=== PATIENT | male | born 1965 | race Caucasian/White ===

== ENCOUNTER → 2020-04-06 13:56 | Outpatient (BNVA) | payer OTHER, SELFPAY | PROVIDERS: PCP Urology; Visit Provider Nurse Practitioner Family | DX: Z20.828 Contact with and (suspected) exposure to other viral communicable diseases (principal) | CPT/HCPCS: 87635 ==

== ENCOUNTER 2024-05-10 15:58 | Emergency (ER) | payer SELFPAY ==
[2024-05-10 16:02] VITALS: BP 185/94; PULSE 62; TEMP 36.8; O2SAT 98
--- NOTE | 2024-05-10 16:14 | CTR_ITS ---
PROCEDURE INFORMATION: Exam: CT Head Without Contrast Exam date and time: 05/10/2024 4:17 PM Age: 59 years old Clinical indication: Stroke-like symptoms; Bilateral lower extremity numbness/paresthesia; Additional info: Symptoms of acute stroke TECHNIQUE: Imaging protocol: Computed tomography of the head without contrast. Radiation optimization: All CT scans at this facility use at least one of these dose optimization techniques: automated exposure control; mA and/or kV adjustment per patient size (includes targeted exams where dose is matched to clinical indication); or iterative reconstruction. Other technique: STROKE PROTOCOL was implemented. COMPARISON: No relevant prior studies available. RADIATION DOSE METRICS: Total DLP (mGy-cm): 1068.18 FINDINGS: Brain: Normal. No hemorrhage. Unremarkable white matter. No mass effect. Cerebral ventricles: No ventriculomegaly. Paranasal sinuses: Visualized sinuses are unremarkable. No fluid levels. Mastoid air cells: Visualized mastoid air cells are well aerated. Bones: Unremarkable. No acute fracture. Soft tissues: Unremarkable. CT/CT head thrombolytic [id number] IMPRESSION: No acute intracranial abnormality. ASSESSMENT: ASPECTS ([place] Stroke Program Early CT Score) is 10.
--- NOTE | 2024-05-10 16:23 | CTR_ITS ---
PROCEDURE INFORMATION: Exam: CTA Head With Contrast, Arteriography Exam date and time: 05/10/2024 4:26 PM Age: 59 years old Clinical indication: Headache; Additional info: Stroke symptoms TECHNIQUE: Imaging protocol: Computed tomographic angiography of the head with contrast. Exam focused on the arteries. 3D rendering (Not supervised by radiologist): MIP and/or 3D reconstructed images were created by the technologist. Radiation optimization: All CT scans at this facility use at least one of these dose optimization techniques: automated exposure control; mA and/or kV adjustment per patient size (includes targeted exams where dose is matched to clinical indication); or iterative reconstruction. Contrast material: OMNIPAQUE 350; Contrast volume: 100 ml; Contrast route: INTRAVENOUS (IV); COMPARISON: CT head thrombolytic [id number] 05/10/2024 4:17 PM RADIATION DOSE METRICS: Total DLP (mGy-cm): 541.52 FINDINGS: ANTERIOR CIRCULATION: Right internal carotid artery: Intracranial segment is patent with no significant stenosis. No aneurysm. Right middle cerebral artery: No occlusion or significant stenosis. No aneurysm. Right anterior cerebral artery: No occlusion or significant stenosis. No aneurysm. Left internal carotid artery: Intracranial segment is patent with no significant stenosis. No aneurysm. Left middle cerebral artery: No occlusion or significant stenosis. No aneurysm. Left anterior cerebral artery: No occlusion or significant stenosis. No aneurysm. POSTERIOR CIRCULATION: Right vertebral artery: No occlusion or significant stenosis. No aneurysm. Left vertebral artery: No occlusion or significant stenosis. No aneurysm. Basilar artery: No occlusion or significant stenosis. No aneurysm. Right posterior cerebral artery: No occlusion or significant stenosis. No aneurysm. Left posterior cerebral artery: No occlusion or significant stenosis. No aneurysm. Brain: No definite mass, mass effect, or midline shift. Cerebral ventricles: No ventriculomegaly. Bones/joints: Unremarkable. No acute fracture. Soft tissues: Unremarkable. PROCEDURE INFORMATION: Exam: CTA Neck With Contrast Exam date and time: 05/10/2024 4:26 PM Age: 59 years old Clinical indication: Headache; Additional info: Stroke symptoms TECHNIQUE: Imaging protocol: Computed tomographic angiography of the neck with contrast. Exam focused on the cervical segments of the vasculature. 3D rendering (Not supervised by radiologist): MIP and/or 3D reconstructed images were created by the technologist. Radiation optimization: All CT scans at this facility use at least one of these dose optimization techniques: automated exposure control; mA and/or kV adjustment per patient size (includes targeted exams where dose is matched to clinical indication); or iterative reconstruction. Contrast material: OMNIPAQUE 350; Contrast volume: 100 ml; Contrast route: INTRAVENOUS (IV); COMPARISON: CT head thrombolytic [id number] 05/10/2024 4:17 PM RADIATION DOSE METRICS: Total DLP (mGy-cm): 541.52 FINDINGS: Right common carotid artery: No stenosis. No dissection or occlusion. Right internal carotid artery: No stenosis of the extracranial segment. No dissection or occlusion. Right external carotid artery: No occlusion or stenosis of the origin. Left common carotid artery: No stenosis. No dissection or occlusion. Left internal carotid artery: No stenosis of the extracranial segment. No dissection or occlusion. Left external carotid artery: No occlusion or stenosis of the origin. Right vertebral artery: No stenosis. No dissection or occlusion. Left vertebral artery: No stenosis. No dissection or occlusion. Soft tissues: Normal. No significant soft tissue swelling. Bones/joints: No acute fracture. CT/CT angio headneck* [id number] IMPRESSION: No large vessel stenosis or occlusion. IMPRESSION: No stenosis or occlusion. REFERENCES: NASCET CRITERIA. The degree of stenosis in the cervical segment of the internal carotid artery is based on NASCET criteria. Normal is no stenosis. Mild is less than 50% stenosis. Moderate is 50-69% stenosis. Severe is 70% to 99% stenosis. Total occlusion is no detectable patent lumen.
[2024-05-10] MEDS: iohexol 350 mg/mL 500 mL Btl (per mL) IV (16:34)
--- NOTE | 2024-05-10 16:34 | ECG_ITS ---
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 Measurements Intervals [place] Rate: 67 P: 0 OR: 0 QRS: 39 QRSD: 106 T: 60 QT: 379 QTc: 401 Interpretive Statements Normal sinus rhythm frequent supraventricular ectopicsth INCOMPLETE RIGHT BUNDLE BRANCH BLOCK [90+ ms QRS DURATION, TERMINAL R IN V1/V2, 40+ ms S IN I/aVL/V4/V5/V6] ABNORMAL RHYTHM ECG No previous ECG available for comparison Electronically Signed On 05-11-2024 17:19:04 HAND PLUG SHAPER by Apple Grey M.D. [email or web address]
--- NOTE | 2024-05-10 16:37 | ED_ITS ---
HPI - Headache 2 General: Chief Complaint: Headache Stated Complaint: stroke symptoms Time Seen by Provider: 05/10/24 16:14 Source: patient Mode of arrival: ambulatory Limitations: no limitations History of Present Illness: 59-year-old male who states he has been having some nausea vomiting headache he states started today around 9:00. States the headache is gradually worsens now an 8 out of 10. Denies any history of headaches he denies any slurred speech or weakness. Denies this being a thunderclap sudden headache. Associated symptoms: Deny chest pain, fever(s), nausea, rash or vomiting Related Data Home Medications ?Medication ?Instructions ?Recorded ?Confirmed No Known Home Medications 04/06/2011/17 Allergies Allergy/AdvReac Type Severity Reaction Status Date / Time Penicillins Allergy Severe swelling Verified 05/10/24 16:06 in airway Review of Systems 2 Const: Denies: fever(s), chills, body aches or change in appetite Eyes: Denies: blurry vision or eye discomfort ENMT: Denies: throat pain or dental pain Card: Denies: chest pain Resp: Denies: dyspnea GI: Denies: abdominal pain, nausea, vomiting or diarrhea Musc: Denies: neck pain or back pain Skin/Breast: Denies: rash Neuro: Reports: headache(s) Physical Exam 2 Const: COMMON NORMALS: no acute distress, patient oriented x3 and healthy appearing HENMT: COMMON NORMALS: normocephalic and atraumatic HEAD & SCALP: n ormocephalic and atraumatic Eye: COMMON NORMALS: Equal, round and reactive pupils present and EOMs intact bilaterally PUPIL: Yes Equal, round and reactive pupils present Neck/C-Spine: COMMON NORMALS: full ROM and supple Chest: COMMONS NORMALS: normal inspection of the chest and normal palpation of entire chest wall Resp: COMMON NORMALS: normal respiratory effort, No retractions, No use of accessory muscles and clear to auscultation bilaterally AUSCULTATION: clear to auscultation bilaterally Cardio: COMMON NORMALS: regular rate, regular rhythm and No murmurs present (Cardio) RATE: regular rate RHYTHM: regular rhythm GI: COMMON NORMALS: Normal to inspection, nondistended, normoactive bowel sounds present, Soft to palpation, non-tender and no masses PALPATION: Yes Soft to palpation Extremity: COMMON NORMALS: normal to inspection and full ROM Neuro: COMMON NORMALS: patient oriented x3, moves all extremities and no focal motor deficits Psych: COMMON NORMALS: mental status grossly normal, Normal thought process present and cooperative THOUGHT PROCESS: Normal thought process present Skin: COMMON NORMALS: no rashes or lesions noted and no wounds GENERAL SKIN EXAM: no rashes or lesions noted Course 2 Vital Signs: Vital signs: Vital Signs Temperature 98.2 F 05/10/24 16:02 Pulse Rate 62 05/10/24 16:02 Blood Pressure 185/94 05/10/24 16:02 Pulse Oximetry 98 05/10/24 16:02 Oxygen Delivery Me thod Room Air 05/10/24 16:02 MDM - Headache Medical Decision Making Patient presents with a headache likely migraine headache his headache here is since resolved. Head CT blood works normal patient stable for discharge follow- up PCP return if worsening. Patient had no signs of hemorrhage or stroke Medical Records I reviewed the patient's medical records. Lab Data I reviewed the patient's lab results. 05/10/24 16:29 05/10/24 16:[address] 05/10/24 16:14 IMPRESSION: No acute intracranial abnormality. ASSESSMENT: ASPECTS ([place] Stroke Program Early CT Score) is 10. 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 Head/Neck CTA 05/10/24 16:23 IMPRESSION: No large vessel stenosis or occlusion. IMPRESSION: No stenosis or occlusion. REFERENCES: NASCET CRITERIA. The degree of stenosis in the cervical segment of the internal carotid artery is based on NASCET criteria. Normal is no stenosis. Mild is less than 50% stenosis. Moderate is 50-69% stenosis. Severe is 70% to 99% stenosis. Total occlusion is no detectable patent lumen. Laboratory Results WBC 10.07 10^3/uL (3.29-11.43) 05/10/24 16:29 RBC 4.70 10^6/uL (3.85-5.65) 05/10/24 16: Hgb 14.60 g/dL (11.27-16.99) 05/10/24 16: Hct 43.4 % (37-53) 05/10/24 16: MCV 92.3 fl (82-101) 05/10/24 16: MCH 31.1 pg (27-33) 05/10/24 16: MCHC 33.6 g/dL (30-55) 05/10/24 16: RDW 12.6 % (12.1-15.1) 05/10/24: Plt Count 264 10^3/cmm (157-399) 05/10/24 16: MPV 10.4 fL (7.4-10.4) 05/10/24 16: Neut % (Auto) 58.0 % 05/10/24 16: Lymph % (Auto) 33.2 % 05/10/24: Bath % (Auto) 6.5 % 05/10/24: Eos % (Auto) 1.6 % 05/10/24: Baso % (Auto) 0.5 % 05/10/24 Neut # (Auto) 5.85 10^3/uL (1.8-7.7) 05/10/24: Lymph # (Auto) 3.3 10^3/uL (0.8-4.8) 05/10/24: Bath # (Auto) 0.7 10^3/uL (0.2-0.9) 05/10/24: Eos # (Auto) 0.2 10^3/uL (0.0-0.8) 05/10/24: Baso # (Auto) 0.1 10^3/uL (0.0-0.1) 05/10/24: Nucleated RBC % (auto) 0 % 05/10/24 Nucleated RBCs # 0.0 /100WBC 05/10/24: PT 12.70 SECONDS (12.1-14.9) 05/10/24: INR 0.89 (0.8-1.2) 05/10/24: APTT 27.8 SECONDS (23.9-36.7) 05/10/24 16: Sodium 141 mmol/L (136-145) 05/10/24: Potassium 4.3 mmol/L (3.5-5.1) 05/10/24 16:29 Chloride 104 mmol/L (98-107) 05/10/24 16:29 Carbon Dioxide 25 mmol/L (22-29) 05/10/24 16:29 Anion Gap 16.3 (5-19) 05/10/24 16:29 BUN 15 mg/dL (8-23) 05/10/24 16:29 Creatinine 1.2 mg/dL (0.7-1.2) 05/10/24 16:29 GFR Calculation 61.8 mL/min (90-130) L 05/10/24 16:29 Glucose 93 mg/dL (65-115) 05/10/24 16:29 Calculated Osmolality 293 mOsm/kg (285-295) 05/10/24 16:29 Calcium 9.2 mg/dL (8.5-10.5) 05/10/24 16:29 Total Bilirubin 0.2 mg/dL (0.15-1.2) 05/10/24 16:29 AST 21 U/L (0-40) 05/10/24 16:29 ALT 22 U/L (0-41) 05/10/24 16:29 Alkaline Phosphatase 69 U/L (40-130) 05/10/24 16:29 Total Protein 7.0 g/dL (6.6-8.7) 05/10/24 16:29 Albumin 4.4 g/dL (3.5-5.2) 05/10/24 16:29 Globulin 2.6 g/dL (1.3-4.6) 05/10/24 16:29 All radiology interpretation(s) finalized by discharge EKG Data EKG 1: I personally reviewed and interpreted this EKG as follows: EKG interpretation date: 05/10/24 EKG interpretation time: 16:34 Interpretation: nsr hr [address] elevation qrs [id number] Discharge Plan Discharge Patient Disposition: Home Clinical Impression: Headache Condition: Stable Prescriptions: No Action No Known Home Medications Discharge Orders: Discharge ED (Routine); Ordered 05/10/24 Ordered By: Candida Garcia Referrals: Roscoe Seth MD [Primary Care Provider] - Discharge Diet: Advance as tolerated Discharge Activity: Resume usual activity Patient Instructions: General Headache (ED) Print Language: Dominican Coding Level of Care Code 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
--- NOTE | 2024-05-10 16:40 | PC.NURSE ---
STROKE ALERT ACTIVATED BY ED REGISTRATION. UPON ASSESSMENT BY ED PHYSICIAN, DR. GARCIA, AND DR. PEREZ, STROKE ALERT CANCELLED.
--- NOTE | 2024-05-10 16:41 | PM.CONSULT ---
Providers/Reason For Consult Consulting Physician/Specialty*: Karthik Mayberry MD neurology and epilepsy Reason for Consult*: Acute care/code stroke emergency department registration desk with transfer to room #6 Primary Care Provider: Roscoe Seth MD History of Present Illness History of Present Illness Efraín Carlos is a 59 year old male with no reported past medical history. According to the patient's the patient does have history of drinking beer and hard liquor 2 times a month. The also stated that the patient occasionally smokes marijuana. The stated that she and her go to marriage counseling every Thursday. They have been going to marriage counseling for approximately 8 months. According to the patient's , around 10 AM during counseling her became very upset during a conversation. The patient stated that they returned home and around 11:30 AM the patient began complaining of a severe headache as if his head was about to explode and he was complaining of nausea and was red in the face and complaining of left leg cramping. The left leg cramping lasted for approximately 1 minute but the headache continued. As a result the patient's brought the patient to [facility] emergency department. In the registration desk waiting room code stroke was initiated at 3:58 PM. When I arrived to the waiting room at the registration desk the patient was in the bathroom and the patient's was standing in the hallway. The patient was brought back to the emergency department room #6. The patient ambulated to the exam room and then ambulated to the CT scanner. Stat noncontrast head CT was obtained on 05/10/2024 and revealed no acute findings. I reviewed the images and the CT scanner room and did not not observe any obvious acute findings. This was confirmed by radiology. In the CT scanner the patient denied any focal weakness but complained of mild headache with photophobia. He denied nausea or speech difficulty or facial weakness or visual loss or blurred vision. Patient also denied any chest pain shortness of breath or palpitations. I recommended CT angiogram of the head and neck to assess for aneurysm. Patient's clinical symptoms were not suggestive of TIA or stroke. According to the patient's for the past 2 months the patient has been experiencing severe headaches as if his head is about to explode associated with photophobia when he gets upset. NIH score = 0. Point of contact glucose Accu-Chek pending at the time of this dictation Stat noncontrast head CT was obtained on 05/10/2024 and revealed no acute findings Since the patient's symptoms began at 11:30 AM on 05/10/2024 and NIH score =0 the patient was not a candidate for intravenous thrombolytics and no intravenous thrombolytics were administered. Drug allergies: Penicillins which resulted in swelling of his airway Current medications: None Past medical history: None Habits: The patient reports that the patient drinks beer and hard liquor 2 times per month and occasional marijuana use Family history: Remarkable for a father with heart disease and a mother with senile dementia of the Alzheimer's type Social history: Patient lives with his Review of Systems General: Reports: 10 or more systems reviewed and unremarkable except in HPI and below Eyes: Reports: photophobia GI: Reports: nausea Neuro: Reports: headache(s) (As if his head is about to explode) Medications/Allergies Home Medications ?Medication ?Instructions ?Recorded ?Confirmed ?Last Taken ?Type No Known Home Medications 04/06/20 04/06/20 Unknown History Allergies Allergy/AdvReac Type Severity Reaction Status Date / Time Penicillins Allergy Severe swelling Verified 05/10/24 16:06 in airway Vitals/I&O/Wt Last Vital Signs Temp 98.2 F 05/10/24 16:02 Pulse 62 05/10/24 16:02 BP 185/94 05/10/24 16:02 Pulse Ox 98 05/10/24 16:02 O2 Del Method Room Air 05/10/24 16:02 Weight last 48 hrs Weight 306 lb Physical Exam Narrative: NIH score = 0. Point of contact glucose Accu-Chek pending at the time of this dictation Stat noncontrast head CT was obtained on 05/10/2024 and revealed no acute findings Since the patient's symptoms began at 11:30 AM on 05/10/2024 and NIH score =0 the patient was not a candidate for intravenous thrombolytics and no intravenous thrombolytics were administered. The patient is alert and oriented x 3. Speech fluent. Pupils 3 to 4 mm bilaterally. Head normocephalic. Neck supple. Cranial nerves II through XII intact. Extraocular movements intact. Motor testing 5/5 bilaterally. There was no drift. There was no signs of ataxia. Patient was able to ambulate from the registration desk/waiting room to the CT scanner. There was no signs of ataxia. Throat clear. Lungs clear. Heart regular rhythm and rate. Extremities were negative for cyanosis. A&P Assessment and plan (1) Thunderclap headache: Impression: 1. Thunderclap headache assess for aneurysm 2. Note: Clinical symptoms not suggestive of TIA or stroke Plan: 1. Awaiting results of CT angiogram of the head and neck 2. Follow-up pending labs 3. Address headache symptoms PDMP PDMP Reviewed: Not Reviewed Consult Attestations Medical Necessity Statement: The patient was evaluated by neurology for acute care/code stroke emergency department room #6 Coding Level of Care Code 28363 Diagnoses Thunderclap headache G44.53
[2024-05-10 16:55] LABS: Basophils # 0.1 10^3/uL (0.0-0.1); Basophils % 0.5 %; Eosinophils # 0.2 10^3/uL (0.0-0.8); Eosinophils % 1.6 %; Hematocrit 43.4 % (37-53); Lymphocytes # 3.3 10^3/uL (0.8-4.8); Lymphocytes % 33.2 %; Mean Corpuscular HGB Conc 33.6 g/dL (30-55); Mean Corpuscular Hemoglobin 31.1 pg (27-33); Mean Corpuscular Volume 92.3 fl (82-101); Mean Platelet Volume 10.4 fL (7.4-10.4); Monocytes # 0.7 10^3/uL (0.2-0.9); Monocytes % 6.5 %; Neutrophils # 5.85 10^3/uL (1.8-7.7); Nucleated Red Blood Cells % 0 %; Platelet Count 264 10^3/cmm (157-399); Red Cell Distribution Width 12.6 % (12.1-15.1); White Blood Count 10.07 10^3/uL (3.29-11.43)
[2024-05-10] MEDS: ketorolac 30 mg/mL INJ 15 MG IVP (16:56)
[2024-05-10] MEDS: diphenhydrAMINE 50 mg/mL SDV 1mL 25 MG IVP (16:58)
[2024-05-10] MEDS: metoclopramide 5 mg/mL SDV 2 mL IVP (16:58)
[2024-05-10 17:00] LABS: INR 0.89 (0.8-1.2)
[2024-05-10 17:02] LABS: Partial Thromboplastin Time 27.8 SECONDS (23.9-36.7)
[2024-05-10 17:06] LABS: Alanine Aminotransferase 22 U/L (0-41); Albumin Level 4.4 g/dL (3.5-5.2); Alkaline Phosphatase 69 U/L (40-130); Anion Gap 16.3 (5-19); Aspartate Amino Transferase 21 U/L (0-40); Blood Urea Nitrogen 15 mg/dL (8-23); Calcium 9.2 mg/dL (8.5-10.5); Carbon Dioxide 25 mmol/L (22-29); Chloride 104 mmol/L (98-107); Globulin 2.6 g/dL (1.3-4.6); Glomerular Filtration Rate 61.8 mL/min (90-130); Glucose 93 mg/dL (65-115); Osmolality Calculated 293 mOsm/kg (285-295); Potassium 4.3 mmol/L (3.5-5.1); Sodium 141 mmol/L (136-145); Total Bilirubin 0.2 mg/dL (0.15-1.2)
[2024-05-10 18:02] VITALS: BP 146/81; PULSE 50; O2SAT 98
== END 2024-05-10 18:04 | disposition home or self-care (01) ==
PROVIDERS: Emergency Provider Emergency Medicine; PCP Urology
DX: R51.9 Headache, unspecified (principal)
CPT/HCPCS: 70450; 70496; 70498; 80053; 85025; 85610; 85730; 93005; 96374; 96375; 99285; J1200; J1885; J2765